=== PATIENT | male | born 2000 | race Caucasian/White ===

== ENCOUNTER → 2022-12-19 | Outpatient (CLI) | payer OTHER ==
[~2022-12-19] MED LIST: ISOVUE-300 61% 100ML VIAL As Ordered ONE; LIDOCAINE 1% MDV 20ML VIAL As Ordered ONE; PROHANCE 279.3MG/ML 5ML VIAL As Ordered ONE
== END ==
LOC: M RAD 13:49
PROVIDERS: ATTEND Physician Assistant
DX: M25.552 Pain in left hip (principal); R29.4 Clicking hip
CPT/HCPCS: 27093; 73723; 77002; A9576; Q9967

== ENCOUNTER → 2023-10-31 | Outpatient (REF) | payer OTHER | LOC: M SMT 17:24 | PROVIDERS: ATTEND Urology | DX: N48.9 Disorder of penis, unspecified (principal); A63.0 Anogenital (venereal) warts ==

== ENCOUNTER → 2023-11-08 | Outpatient (REF) | LOC: M PLAIMG 08:39 | PROVIDERS: ATTEND Internal Medicine | DX: R52 Pain, unspecified (principal) ==